=== PATIENT | male | born 2000 | race African-American/Black ===

== ENCOUNTER → 2020-01-05 | Outpatient (CLI) | payer OTHER ==
--- NOTE | 2020-02-08 08:14 | REP ---
THREE PHASE BONE SCAN OF THE LOWER EXTREMITIES HISTORY: Pain in the left leg. Patient reports pain in both legs. TECHNIQUE: 21.9 mCi of Technetium-99m MDP is injected and standard three phase bone scan imaging is acquired of the lower extremities. SCINTIGRAPHIC FINDINGS: The anterior and posterior flow images are unremarkable. Blood pool images show no focus of regional hyperemia in the soft tissues of either calf. Delayed scan images demonstrate increased linear uptake pattern in the posteromedial cortex of the right distal tibia consistent with stress periostitis. There are minimal similar changes on the left posteriorly and medially in the distal tibia. IMPRESSION: Stress periostitis pattern, right greater than left. No established stress fracture seen. Otherwise negative. MTDD
== END ==
LOC: M RAD 10:54
PROVIDERS: ATTEND Physician Assistant
DX: M79.604 Pain in right leg (principal); M79.605 Pain in left leg
CPT/HCPCS: 78315; A9503

== ENCOUNTER 2020-05-16 00:47 | Emergency (ER) | payer OTHER ==
[~2020-05-16] VITALS: Ht 180.3 cm; Wt 83.4 kg
[2020-05-16 00:48] VITALS: BP 131/70
[2020-05-16] MEDS ORDERED: LIDOCAINE 5% (LIDODERM) PATCH TD ONE (01:30)
[2020-05-16] MEDS ORDERED: KETOROLAC 60MG 2ML VIAL IM ONE (01:30)
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
[2020-05-16] MEDS ORDERED: ASPE4PAD TOP (02:20)
[2020-05-16] MEDS ORDERED: NAPR-837 PO (02:20)
[2020-05-16] MEDS ORDERED: ROBA750T4 PO (02:20)
[2020-05-16] MEDS ORDERED: methocarbamoL 750 MG TAB PO ONE (02:30)
[2020-05-16] MEDS ORDERED: **NOTE PATIENT COMMENT** MISC XX ONE (13:30)
== END 2020-05-16 02:40 | disposition home or self-care (01) ==
LOC: M ED 00:47
DX: M62.830 Muscle spasm of back (principal); V47.0XXA Car driver injured in collision with fixed or stationary object in nontraffic accident, initial encounter; Y92.9 Unspecified place or not applicable; Y93.9 Activity, unspecified; Y99.9 Unspecified external cause status; Z79.899 Other long term (current) drug therapy
CPT/HCPCS: 72110; 96372; 99283; J1885

== ENCOUNTER → 2020-06-15 | Outpatient (CLI) | payer OTHER ==
[~2020-06-15] MED LIST: ASPE4PAD TOP; NAPR-837 PO; ROBA750T4 PO
== END ==
LOC: M LABSMTC 10:44
PROVIDERS: ATTEND Pediatrics
DX: Z20.822 Contact with and (suspected) exposure to COVID-19 (principal)
CPT/HCPCS: C9803; U0003

== ENCOUNTER → 2021-09-19 | Outpatient (REF) | LOC: M PLAIMG 14:32 | PROVIDERS: ATTEND Internal Medicine | DX: M25.561 Pain in right knee (principal); M54.50 Low back pain, unspecified ==

== ENCOUNTER 2024-08-11 10:21 | Inpatient (IN) | payer OTHER ==
[~2024-08-11] VITALS: Ht 180.3 cm; Wt 88.4 kg
[2024-08-11] MEDS: OLANZapine ORAL DISINTEGRATING TAB 5MG PO ONE (10:39)
[2024-08-11] MEDS: NS (Normal Saline) 0.9% 1,000 ML IV ONE (10:41)
[2024-08-11 10:43] LABS: VENOUS BASE EXCESS -7.1 (-2.0-2.0); VENOUS HCO3 17.2 MMOL/L (23.0-27.0); VENOUS PARTIAL PRESSURE CO2 32.1 mmHg (38.0-50.0); VENOUS PARTIAL PRESSURE O2 37.2 mmHg (30.0-50.0); VENOUS PH 7.347 UNITS (7.330-7.430); VENOUS STANDARD HCO3 18.2 MMOL/L; VENOUS TOTAL CO2 18.2 MMOL/L (24.0-28.0)
[2024-08-11 10:52] LABS: BASO % 0.3 % (0.0-1.0); EOS % 0.2 % (0.0-3.0); HEMATOCRIT 45.5 % (42.0-52.0); HEMOGLOBIN 15.6 g/dl (13.5-17.5); LYMPH # 2.1 10^3/uL (1.5-5.0); LYMPH % 17.9 % (24.0-44.0); MEAN CORPUSCULAR HEMOGLOBIN 30.6 pg (27.0-33.0); MEAN CORPUSCULAR HGB CONC 34.3 g/dl (32.0-36.5); MEAN CORPUSCULAR VOLUME 89.4 fl (80.0-96.0); MONO # 0.6 10^3/uL (0.0-0.8); MONO % 4.8 % (2.0-8.0); NEUTROPHILS # 8.8 10^3/uL (1.5-8.5); NEUTROPHILS % 76.5 % (36.0-66.0); PLATELET COUNT, AUTOMATED 272 10^3/uL (150-450); RED BLOOD COUNT 5.09 10^6/uL (4.30-6.10); WHITE BLOOD COUNT 11.4 10^3/uL (4.0-10.0)
[2024-08-11 11:17] LABS: ETHYL ALCOHOL (ETHANOL) < 0.003 % (0.000-0.010)
[2024-08-11 11:19] LABS: ALBUMIN 4.3 G/DL (3.2-5.2); ALKALINE PHOSPHATASE 55 U/L (40-129); ALT/SGPT 23 U/L (7.0-40); AST/SGOT 29 U/L (<34); BILIRUBIN,DIRECT 0.2 MG/DL (<0.4); BILIRUBIN,TOTAL 0.8 MG/DL (0.3-1.2); BLOOD UREA NITROGEN 10 MG/DL (9-23); CALCIUM LEVEL 9.3 MG/DL (8.5-10.1); CARBON DIOXIDE LEVEL 20 MMOL/L (20-31); CHLORIDE LEVEL 95 MMOL/L (98-107); CREATININE FOR GFR 1.36 MG/DL (0.70-1.30); GLOMERULAR FILTRATION RATE > 60.0 (>60); GLUCOSE, FASTING 205 MG/DL (60-100); POTASSIUM SERUM 3.2 MMOL/L (3.5-5.1); SALICYLATE LEVEL < 3.0 MG/DL (<30); SODIUM LEVEL 131 MMOL/L (136-145); TOTAL PROTEIN 7.8 G/DL (5.7-8.2)
[2024-08-11 11:21] LABS: THYROID STIMULATING HORMONE 1.523 uIU/ML (0.55-4.78)
[2024-08-11 11:22] LABS: CPK CREATINE PHOSPHOKINASE 749 U/L (46-171)
[2024-08-11 12:06] LABS: AMPHETAMINES LEVEL URINE NEGATIVE (NEGATIVE); BARBITURATES URINE NEGATIVE (NEGATIVE); BENZODIAZEPINES URINE NEGATIVE (NEGATIVE); COCAINE METABOLITE URINE NEGATIVE (NEGATIVE); METHADONE URINE NEGATIVE (NEGATIVE)
[2024-08-11 12:07] LABS: CANNABINOIDS URINE NEGATIVE (NEGATIVE); OPIATES URINE NEGATIVE (NEGATIVE); PHENCYCLIDINE URINE NEGATIVE (NEGATIVE)
[2024-08-11] MEDS: POTASSIUM CHLORIDE 10MEQ SR TABLET PO ONE (12:57)
[2024-08-11] MEDS: LORazepam 2 MG TAB PO STA (13:52)
[2024-08-11] MEDS ORDERED: AMIT25TA19 PO (15:35)
[2024-08-11] MEDS ORDERED: ERGO500029 PO (15:35)
[2024-08-11] MEDS ORDERED: FLUT15.820 (15:39)
[2024-08-11] MEDS ORDERED: VIIB20TA PO (15:39)
[2024-08-11] MEDS ORDERED: LORA-1041 PO (15:39)
[2024-08-11] MEDS ORDERED: SUMA20SP4 (15:39)
[2024-08-11] MEDS ORDERED: MAGN400T35 PO (15:39)
[2024-08-11] MEDS ORDERED: RIBO400T PO (15:39)
[2024-08-11] MEDS ORDERED: HOME MED LIST COMPLETE! XX SCH (15:40)
[2024-08-11 17:40] VITALS: BP 132/88; TEMP 97; O2SAT 100
[2024-08-11] MEDS: diphenhydrAMINE 50MG CAP PO ONE (19:30)
[2024-08-11] MEDS: LORazepam 2 MG TAB PO ONE (19:30)
[2024-08-12 06:22] VITALS: BP 145/76; TEMP 97.9; O2SAT 99
[2024-08-12] MEDS: VITAMIN D 50,000 UNITS CAPSULE (ERGOCALCIFEROL 1.25MG) PO SCH (13:54)
[2024-08-12] MEDS: MAGNESIUM OXIDE 400MG TAB (MAG-OX) PO SCH (13:54)
[2024-08-12] MEDS: LORATADINE 10 MG TAB PO SCH (13:55)
[2024-08-12 14:44] VITALS: BP 130/75; TEMP 98.5; O2SAT 100
[2024-08-12] MEDS: AMITRIPTYLINE 25MG TABLET PO SCH (22:10)
[2024-08-13 06:25] VITALS: BP 157/97; TEMP 98.2; O2SAT 100
[2024-08-13] MEDS ORDERED: POTASSIUM CHLORIDE 10MEQ SR TABLET PO ONE (08:55)
[2024-08-13 09:53] LABS: BLOOD UREA NITROGEN 10 MG/DL (9-23); CARBON DIOXIDE LEVEL 30 MMOL/L (20-31); CHLORIDE LEVEL 102 MMOL/L (98-107); CREATININE FOR GFR 1.22 MG/DL (0.70-1.30); GLOMERULAR FILTRATION RATE > 60.0 (>60); GLUCOSE, FASTING 80 MG/DL (60-100); POTASSIUM SERUM 3.9 MMOL/L (3.5-5.1); SODIUM LEVEL 138 MMOL/L (136-145)
== END 2024-08-13 10:47 | disposition home or self-care (01) | DRG 882 ==
LOC: EDBD 10:21 → M ED 10:21 → M ED INP 16:43 → M PSY 18:11
PROVIDERS: ADMIT Psychiatry & Neurology Psychiatry; ATTEND Psychiatry & Neurology Psychiatry
DX: F43.10 Post-traumatic stress disorder, unspecified (principal); E87.1 Hypo-osmolality and hyponatremia; N17.9 Acute kidney failure, unspecified; F32.A Depression, unspecified; F41.9 Anxiety disorder, unspecified; M54.50 Low back pain, unspecified; G89.29 Other chronic pain; Z63.5 Disruption of family by separation and divorce; Z91.51 Personal history of suicidal behavior; E87.6 Hypokalemia

== ENCOUNTER 2024-09-04 23:37 | Inpatient (IN) | payer OTHER ==
[~2024-09-04 23:37] MED LIST changes: +AMIT25TA19 PO; +ERGO500029 PO; +FLUT15.820; +LORA-1041 PO; +MAGN400T35 PO; +RIBO400T PO; +SUMA20SP4; +VIIB20TA PO
[2024-09-05 00:27] LABS: HEMATOCRIT 45.5 % (42.0-52.0); HEMOGLOBIN 15.5 g/dl (13.5-17.5); MEAN CORPUSCULAR HEMOGLOBIN 30.8 pg (27.0-33.0); MEAN CORPUSCULAR HGB CONC 34.1 g/dl (32.0-36.5); MEAN CORPUSCULAR VOLUME 90.5 fl (80.0-96.0); PLATELET COUNT, AUTOMATED 247 10^3/uL (150-450); RED BLOOD COUNT 5.03 10^6/uL (4.30-6.10); WHITE BLOOD COUNT 9.1 10^3/uL (4.0-10.0)
[2024-09-05] MEDS: OLANZapine ORAL DISINTEGRATING TAB 5MG PO ONE (00:34)
[2024-09-05 00:52] LABS: ETHYL ALCOHOL (ETHANOL) 0.005 % (0.000-0.010)
[2024-09-05 00:54] LABS: ALBUMIN 4.3 G/DL (3.2-5.2); ALKALINE PHOSPHATASE 59 U/L (40-129); ALT/SGPT 21 U/L (7.0-40); AST/SGOT 28 U/L (<34); BILIRUBIN,DIRECT 0.2 MG/DL (<0.4); BILIRUBIN,TOTAL 0.6 MG/DL (0.3-1.2); BLOOD UREA NITROGEN 7 MG/DL (9-23); CALCIUM LEVEL 10.3 MG/DL (8.5-10.1); CARBON DIOXIDE LEVEL 26 MMOL/L (20-31); CHLORIDE LEVEL 102 MMOL/L (98-107); CREATININE FOR GFR 1.16 MG/DL (0.70-1.30); GLOMERULAR FILTRATION RATE 89.1 (>60); GLUCOSE, FASTING 98 MG/DL (60-100); POTASSIUM SERUM 4.3 MMOL/L (3.5-5.1); SALICYLATE LEVEL < 3.0 MG/DL (<30); SODIUM LEVEL 138 MMOL/L (136-145); TOTAL PROTEIN 7.9 G/DL (5.7-8.2)
[2024-09-05 00:56] LABS: THYROID STIMULATING HORMONE 0.643 uIU/ML (0.55-4.78)
[2024-09-05] MEDS ORDERED: HALOPERIDOL LACTATE 5MG/ML VIAL As Ordered ONE (02:17)
[2024-09-05] MEDS ORDERED: diphenhydrAMINE 50MG/ML VIAL As Ordered ONE (02:17)
[2024-09-05 02:18] LABS: AMPHETAMINES LEVEL URINE NEGATIVE (NEGATIVE); BARBITURATES URINE NEGATIVE (NEGATIVE); BENZODIAZEPINES URINE NEGATIVE (NEGATIVE); CANNABINOIDS URINE NEGATIVE (NEGATIVE); COCAINE METABOLITE URINE NEGATIVE (NEGATIVE); METHADONE URINE NEGATIVE (NEGATIVE); OPIATES URINE NEGATIVE (NEGATIVE); PHENCYCLIDINE URINE NEGATIVE (NEGATIVE)
[2024-09-05] MEDS: diphenhydrAMINE 50MG/ML VIAL IM ONE (02:21)
[2024-09-05] MEDS: HALOPERIDOL LACTATE 5MG/ML VIAL IM ONE (02:21)
[2024-09-05] MEDS ORDERED: HOME MED LIST COMPLETE! XX SCH (09:55)
[2024-09-05] MEDS ORDERED: MOM 30ML SUSPENSION UDC PO PRN (11:10)
[2024-09-05] MEDS ORDERED: diphenhydrAMINE 25MG CAP PO PRN (11:10)
[2024-09-05] MEDS ORDERED: traZODone 50 MG TAB PO PRN (11:10)
[2024-09-05] MEDS ORDERED: MAALOX 30 ML SUSP *UDC PO PRN (11:10)
[2024-09-05] MEDS ORDERED: LORazepam 1 MG TAB PO PRN (11:10)
[2024-09-05] MEDS ORDERED: OLANZapine 5 MG TAB PO PRN (11:10)
[2024-09-05] MEDS: NICOTINE 14 MG/24 HR TRANSDERMAL TD SCH (14:35)
[2024-09-05] MEDS: ACETAMINOPHEN 325 MG TAB PO PRN (20:53)
[2024-09-06 06:05] VITALS: BP 136/66; TEMP 97.7; O2SAT 99
== END 2024-09-06 13:13 | disposition home or self-care (01) | DRG 881 ==
LOC: EDBD 23:37 → M ED 23:37 → M ED INP 09-05 11:08 → M PSY 09-05 15:10
PROVIDERS: ADMIT Internal Medicine; ATTEND Internal Medicine
DX: F32.A Depression, unspecified (principal); F41.9 Anxiety disorder, unspecified

== ENCOUNTER 2024-09-06 17:21 | Inpatient (IN) | payer OTHER ==
[~2024-09-06] VITALS: Ht 180.3 cm; Wt 85.2 kg
[2024-09-06] MEDS ORDERED: ISOVUE-370 76% 100ML VIAL As Ordered ONE (18:13)
[2024-09-06 18:20] LABS: VENOUS HCO3 23.4 MMOL/L (23.0-27.0); VENOUS PARTIAL PRESSURE CO2 29.1 mmHg (38.0-50.0); VENOUS PARTIAL PRESSURE O2 34.4 mmHg (30.0-50.0); VENOUS PH 7.524 UNITS (7.330-7.430); VENOUS STANDARD HCO3 25.6 MMOL/L; VENOUS TOTAL CO2 24.3 MMOL/L (24.0-28.0)
[2024-09-06 18:26] LABS: BASO % 0.6 % (0.0-1.0); EOS # 0.1 10^3/uL (0.0-0.5); EOS % 1.2 % (0.0-3.0); HEMATOCRIT 44.7 % (42.0-52.0); HEMOGLOBIN 15.7 g/dl (13.5-17.5); LYMPH % 29.6 % (24.0-44.0); MEAN CORPUSCULAR HEMOGLOBIN 31.2 pg (27.0-33.0); MEAN CORPUSCULAR HGB CONC 35.1 g/dl (32.0-36.5); MEAN CORPUSCULAR VOLUME 88.7 fl (80.0-96.0); MONO # 0.5 10^3/uL (0.0-0.8); MONO % 6.9 % (2.0-8.0); NEUTROPHILS # 4.2 10^3/uL (1.5-8.5); NEUTROPHILS % 61.3 % (36.0-66.0); PLATELET COUNT, AUTOMATED 271 10^3/uL (150-450); RED BLOOD COUNT 5.04 10^6/uL (4.30-6.10); WHITE BLOOD COUNT 6.8 10^3/uL (4.0-10.0)
[2024-09-06 18:28] LABS: KETONE, URINE AUTO RFX TRACE mg/dL (NEGATIVE); LEUKOCYTE ESTERASE UR AUTO RFX NEGATIVE (NEGATIVE); NITRITE, URINE AUTO RFX NEGATIVE (NEGATIVE); RBC, URINE AUTO RFX 0 /HPF (0-3); SQUAM EPITHELIAL CELL UR AURFX 0 /HPF (0-6); WBC, URINE AUTO RFX 0 /HPF (0-3)
[2024-09-06 18:47] LABS: INR 0.97; PARTIAL THROMBOPLASTIN TIME 29.9 SECONDS (24.8-34.2); PROTHROMBIN TIME 13.2 SECONDS (12.5-14.5)
[2024-09-06] MEDS: NS 500 ML IV ONE (18:47)
[2024-09-06 18:49] LABS: ETHYL ALCOHOL (ETHANOL) < 0.003 % (0.000-0.010); LIPASE 27 U/L (12-53)
[2024-09-06 18:50] LABS: CK-MB VALUE MASS 2.9 NG/ML (<3.6)
[2024-09-06 18:51] LABS: AMYLASE 428 U/L (30-118); SALICYLATE LEVEL < 3.0 MG/DL (<30)
[2024-09-06 18:59] LABS: AMPHETAMINES LEVEL URINE NEGATIVE (NEGATIVE); BARBITURATES URINE NEGATIVE (NEGATIVE); BENZODIAZEPINES URINE NEGATIVE (NEGATIVE); COCAINE METABOLITE URINE NEGATIVE (NEGATIVE); METHADONE URINE NEGATIVE (NEGATIVE)
[2024-09-06 19:00] LABS: CANNABINOIDS URINE NEGATIVE (NEGATIVE); OPIATES URINE NEGATIVE (NEGATIVE); PHENCYCLIDINE URINE NEGATIVE (NEGATIVE)
[2024-09-06 19:27] LABS: ALBUMIN 4.2 G/DL (3.2-5.2); ALKALINE PHOSPHATASE 56 U/L (40-129); ALT/SGPT 27 U/L (7.0-40); AST/SGOT 40 U/L (<34); BILIRUBIN,DIRECT 0.1 MG/DL (<0.4); BILIRUBIN,TOTAL 0.5 MG/DL (0.3-1.2); BLOOD UREA NITROGEN 11 MG/DL (9-23); CALCIUM LEVEL 10.2 MG/DL (8.5-10.1); CARBON DIOXIDE LEVEL 24 MMOL/L (20-31); CHLORIDE LEVEL 104 MMOL/L (98-107); CPK CREATINE PHOSPHOKINASE 1648 U/L (46-171); CREATININE FOR GFR 1.04 MG/DL (0.70-1.30); GLOMERULAR FILTRATION RATE > 90.0 (>60); GLUCOSE, FASTING 91 MG/DL (60-100); MB/CK RELATIVE INDEX 0.17 (< OR =4); POTASSIUM SERUM 3.9 MMOL/L (3.5-5.1); SODIUM LEVEL 139 MMOL/L (136-145); TOTAL PROTEIN 7.7 G/DL (5.7-8.2)
[2024-09-06 21:06] LABS: HEMATOCRIT 43.9 % (42.0-52.0); HEMOGLOBIN 15.1 g/dl (13.5-17.5); MEAN CORPUSCULAR HEMOGLOBIN 30.6 pg (27.0-33.0); MEAN CORPUSCULAR HGB CONC 34.4 g/dl (32.0-36.5); MEAN CORPUSCULAR VOLUME 88.9 fl (80.0-96.0); PLATELET COUNT, AUTOMATED 256 10^3/uL (150-450); RED BLOOD COUNT 4.94 10^6/uL (4.30-6.10); WHITE BLOOD COUNT 8.3 10^3/uL (4.0-10.0)
[2024-09-06] MEDS: ACETAMINOPHEN *IV* 1,000 MG in IV 1 EA IV ONE (21:58)
[2024-09-07] MEDS ORDERED: diphenhydrAMINE 25MG CAP PO PRN (00:05)
[2024-09-07] MEDS ORDERED: MAALOX 30 ML SUSP *UDC PO PRN (00:05)
[2024-09-07 01:06] VITALS: BP 155/81; TEMP 97.8; O2SAT 98
[2024-09-07] MEDS: IBUPROFEN 400MG TAB PO PRN (09:16)
[2024-09-07 15:24] VITALS: BP 155/87; TEMP 97; O2SAT 100
[2024-09-08 06:50] VITALS: BP 100/58; TEMP 97.9; O2SAT 100
[2024-09-08] MEDS ORDERED: HOME MED LIST COMPLETE! XX SCH (07:45)
[2024-09-08] MEDS: MOM 30ML SUSPENSION UDC PO PRN (09:35)
[2024-09-08 16:07] VITALS: BP 130/79; TEMP 97.7; O2SAT 100
[2024-09-08] MEDS: MIRTAZAPINE 7.5MG PER 1/2 TABLET PO SCH (20:41)
[2024-09-08] MEDS: traZODone 50 MG TAB PO PRN (23:26)
[2024-09-09] MEDS: ACETAMINOPHEN 325 MG TAB PO PRN (05:32)
[2024-09-09 06:31] VITALS: BP 122/94; TEMP 97.6; O2SAT 97
[2024-09-09] MEDS ORDERED: traMADol 50 MG TAB PO PRN (08:20)
[2024-09-09 16:22] VITALS: BP 129/68; TEMP 98.6; O2SAT 100
[2024-09-09] MEDS: ARIPiprazole 10 MG TAB PO SCH (20:39)
[2024-09-10 06:32] VITALS: BP 144/80; TEMP 97.5; O2SAT 99
[2024-09-10] MEDS: OLANZapine ORAL DISINTEGRATING TAB 5MG PO PRN (12:54)
[2024-09-10] MEDS: ARIPiprazole MONOHYDRATE 400 MG INJ (ABILIFY)(FREE PSY INPT ONLY) IM ONE (13:01)
[2024-09-10 17:34] VITALS: BP 143/80; TEMP 97.5; O2SAT 100
[2024-09-11 07:05] VITALS: BP 146/87; TEMP 97.7; O2SAT 99
[2024-09-11] MEDS ORDERED: TRAZ-252 PO (08:37)
[2024-09-11] MEDS ORDERED: TRAM50TA2 PO (08:37)
[2024-09-11] MEDS ORDERED: MIRT-10 PO (08:37)
[2024-09-11] MEDS ORDERED: OLANZapine DISINTEGRATING PO (08:37)
[2024-09-11] MEDS ORDERED: ABIL10TA9 PO (08:37)
== END 2024-09-11 09:44 | disposition home or self-care (01) | DRG 880 ==
LOC: EDBD 17:21 → M ED 17:21 → M ED INP 09-07 00:04 → M PSY 09-07 01:04
PROVIDERS: ADMIT Student in an Organized Health Care Education/Training Program; ATTEND Student in an Organized Health Care Education/Training Program
DX: F41.1 Generalized anxiety disorder (principal); R45.851 Suicidal ideations; F43.10 Post-traumatic stress disorder, unspecified; Z63.5 Disruption of family by separation and divorce; Z79.899 Other long term (current) drug therapy

== ENCOUNTER → 2024-09-17 | Outpatient (CLI) | payer OTHER ==
[~2024-09-17] MED LIST changes: +ABIL10TA9 PO; +MIRT-10 PO; +OLANZapine DISINTEGRATING PO; +TRAM50TA2 PO; +TRAZ-252 PO
== END ==
LOC: M SOG 09:14
PROVIDERS: ATTEND Orthopaedic Surgery
DX: M25.531 Pain in right wrist (principal)

== ENCOUNTER → 2024-09-23 | Outpatient (CLI) | payer OTHER | LOC: M SOG 07:06 | PROVIDERS: ATTEND Orthopaedic Surgery | DX: M25.531 Pain in right wrist (principal); S52.571A Other intraarticular fracture of lower end of right radius, initial encounter for closed fracture; X58.XXXA Exposure to other specified factors, initial encounter; Y92.9 Unspecified place or not applicable; Y93.9 Activity, unspecified; Y99.9 Unspecified external cause status ==

== ENCOUNTER → 2024-09-30 | Outpatient (CLI) | payer OTHER | LOC: M SOG 06:57 | PROVIDERS: ATTEND Orthopaedic Surgery | DX: S52.571A Other intraarticular fracture of lower end of right radius, initial encounter for closed fracture (principal); W18.30XA Fall on same level, unspecified, initial encounter; Y92.009 Unspecified place in unspecified non-institutional (private) residence as the place of occurrence of the external cause ==

== ENCOUNTER → 2025-05-02 | Outpatient (CLI) | payer OTHER | LOC: M PLAIMG 07:02 | PROVIDERS: ATTEND Pain Medicine Interventional Pain Medicine | DX: M54.12 Radiculopathy, cervical region (principal); M54.16 Radiculopathy, lumbar region ==